=== PATIENT | female | born 1955 | race Caucasian/White ===

== ENCOUNTER 2022-02-25 16:33 | Emergency (ER) | payer MEDICARE, BC, MEDICAID ==
[~2022-02-25] VITALS: Ht 165.1 cm; Wt 45.5 kg
[2022-02-25] MEDS ORDERED: normal saline 1000ML IV soln IVB ONE (17:05)
[2022-02-25 17:13] LABS: BASOPHILS % (AUTO) 0.3 % (0-1); EOSINOPHILS # (AUTO) 0.1 X10'3 (0-0.9); HEMATOCRIT 33.7 % (35.0-45.0); HEMOGLOBIN 11.3 g/dl (12.0-16.0); LYMPHOCYTES # (AUTO) 2.2 X10'3 (1.1-4.8); MEAN CORPUSCULAR HEMOGLOBIN 31.6 PG (27.0-31.0); MEAN CORPUSCULAR HGB CONC 33.5 g/dL (33.0-36.5); MEAN CORPUSCULAR VOLUME 94.4 FL (78-98); MEAN PLATELET VOLUME 6.6 FL (7.4-10.4); MONOCYTES # (AUTO) 0.4 X10'3 (0-0.9); MONOCYTES % (AUTO) 7.2 % (2-12); NEUTROPHILS # (AUTO) 2.5 X10'3 (1.8-7.7); NEUTROPHILS % (AUTO) 49.5 % (42-75); PLATELET COUNT 284 X10'3 (140-440); RED BLOOD COUNT 3.56 X10'6 (4.20-5.60); RED CELL DISTRIBUTION WIDTH 13.1 % (11.5-14.5); WHITE BLOOD COUNT 5.1 X10'3 (4.5-11.0)
[2022-02-25 17:24] LABS: ALANINE AMINOTRANSFERASE 22 U/L (12-78); ALBUMIN 3.9 G/DL (3.4-5.0); ALBUMIN/GLOBULIN RATIO 1.3 (1.1-1.5); ALKALINE PHOSPHATASE 54 IU/L (46-116); ANION GAP 8 (8-16); ASPARTATE AMINO TRANSFERASE 21 U/L (10-37); BILIRUBIN,TOTAL 0.2 MG/DL (0.1-1.0); BLOOD UREA NITROGEN 16 MG/DL (7-18); BUN/CREATININE RATIO 24.2 (6.6-38.0); CALCIUM 8.5 MG/DL (8.5-10.1); CHLORIDE 103 MMOL/L (99-107); CREATININE 0.66 MG/DL (0.40-0.90); GLUCOSE 88 MG/DL (70-104); POTASSIUM 3.3 MMOL/L (3.5-5.1); SODIUM 141 MMOL/L (135-145); TOTAL CARBON DIOXIDE 30.3 MMOL/L (24-32); eGFR 90 ML/MIN
[2022-02-25] MEDS ORDERED: potassium Cl 20 mEq SR tablet PO STA (17:37)
[2022-02-25 18:51] VITALS: BP 174/97
[2022-02-25] MEDS ORDERED: acetaminophen 325mg tablet PO ONE (19:45)
== END 2022-02-25 19:58 | disposition home or self-care (01) ==
LOC: ER 16:34
DX: R00.2 Palpitations (principal); R07.89 Other chest pain; R06.02 Shortness of breath; R42 Dizziness and giddiness; F17.200 Nicotine dependence, unspecified, uncomplicated; F12.90 Cannabis use, unspecified, uncomplicated; Z98.890 Other specified postprocedural states; Z88.8 Allergy status to other drugs, medicaments and biological substances
CPT/HCPCS: 36415; 71045; 80053; 83880; 84484; 85025; 93005; 96360; 96361; 99285; J7030

== ENCOUNTER 2022-09-15 13:47 | Emergency (ER) | payer OTHER, MEDICAID ==
[~2022-09-15] VITALS: Ht 167.6 cm; Wt 42.8 kg
[2022-09-15 14:34] LABS: BASOPHILS % (AUTO) 0.6 % (0-1); EOSINOPHILS % (AUTO) 1.2 % (0-6); HEMATOCRIT 29.4 % (35.0-45.0); HEMOGLOBIN 9.6 g/dl (12.0-16.0); LYMPHOCYTES # (AUTO) 1.1 X10'3 (1.1-4.8); LYMPHOCYTES % (AUTO) 33.7 % (21-51); MEAN CORPUSCULAR HEMOGLOBIN 31.6 PG (27.0-31.0); MEAN CORPUSCULAR HGB CONC 32.7 g/dL (33.0-36.5); MEAN CORPUSCULAR VOLUME 96.6 FL (78-98); MEAN PLATELET VOLUME 6.7 FL (7.4-10.4); MONOCYTES # (AUTO) 0.2 X10'3 (0-0.9); MONOCYTES % (AUTO) 6.3 % (2-12); NEUTROPHILS # (AUTO) 1.9 X10'3 (1.8-7.7); NEUTROPHILS % (AUTO) 58.2 % (42-75); PLATELET COUNT 312 X10'3 (140-440); RED BLOOD COUNT 3.05 X10'6 (4.20-5.60); WHITE BLOOD COUNT 3.3 X10'3 (4.5-11.0)
[2022-09-15 14:43] LABS: APTT 28 SECONDS (22-32)
[2022-09-15 14:45] LABS: ALANINE AMINOTRANSFERASE 14 U/L (12-78); ALBUMIN/GLOBULIN RATIO 1.4 (1.1-1.5); ALKALINE PHOSPHATASE 53 IU/L (46-116); ANION GAP 8 (8-16); ASPARTATE AMINO TRANSFERASE 19 U/L (10-37); BILIRUBIN,TOTAL 0.3 MG/DL (0.1-1.0); BLOOD UREA NITROGEN 18 MG/DL (7-18); BUN/CREATININE RATIO 16.8 (10.0-20.0); CALCIUM 8.4 MG/DL (8.5-10.1); CHLORIDE 104 MMOL/L (99-107); CREATININE 1.07 MG/DL (0.40-0.90); GLUCOSE 102 MG/DL (70-104); POTASSIUM 4.4 MMOL/L (3.5-5.1); SODIUM 142 MMOL/L (135-145); TOTAL CARBON DIOXIDE 30.2 MMOL/L (24-32); TOTAL PROTEIN 6.8 G/DL (6.4-8.2); eGFR 51 ML/MIN
--- NOTE | 2022-09-15 16:25 | NUR ---
SPOKE WITH MD REGARDING PT'S ASSESSMENT. MD STAED TO D/C NEURO CHECKS GIVEN PATIENT'S S/S INCLUDE MILD HEADACHE AND OCCASIONAL BLURRY VISION TO RIGHT EYE. PRODUCT MARKETING COORDINATOR 5/5 UE AND LE BILAT, A&OX4, SMILE EQUAL, NO FACIAL DROOP, PERRLA (NYSTAGMUS TO RIGHT EYE). CT NEGATIVE. PT STATING SHE HAS HAD THIS HEADACHE FOR 2 DAYS NOW, BUT WAS TOLD IN CLINIC TO BE SEEN AT ER. WILL CONTINUE TO MONITOR.
[2022-09-15 17:41] LABS: CLARITY,URINE CLEAR (Clear); COLOR,URINE YELLOW (Yellow); GLUCOSE, URINE NEGATIVE (Neg); KETONES,URINE NEGATIVE (Neg); LEUKOCYTE ESTERASE ,URINE SMALL (Neg); NITRITES, URINE POSITIVE (Neg); OCCULT BLOOD,URINE NEGATIVE (Neg); PH,URINE 5.5 (4.8-8.0); PROTEIN,URINE NEGATIVE (Neg); UROBILINOGEN,URINE 0.2 E.U/dL (0.2-1.0)
[2022-09-15 17:50] LABS: BACTERIA,URINE 4+ /HPF (Neg); MUCUS STRANDS FEW /LPF (Neg); RBC,URINE NONE SEEN /HPF (0-2); SQUAMOUS EPITHELIAL CELL,UR NONE SEEN /LPF (FEW); UA COLLECTION TYPE NON-SPECIFIED; WBC,URINE 20-30 /HPF (0-4)
[2022-09-15] MEDS ORDERED: cephalexin 250mg capsule PO ONE (17:55)
[2022-09-15] MEDS ORDERED: CEPH500C2 PO (17:57)
[2022-09-15 18:52] VITALS: BP 135/81
== END 2022-09-15 18:54 | disposition home or self-care (01) ==
LOC: ER 13:48
DX: N39.0 Urinary tract infection, site not specified (principal); Z88.8 Allergy status to other drugs, medicaments and biological substances; F12.10 Cannabis abuse, uncomplicated; Z79.899 Other long term (current) drug therapy
CPT/HCPCS: 36415; 70450; 71045; 80053; 81001; 82948; 85025; 85610; 85730; 87077; 87088; 87186; 93005; 99285

== ENCOUNTER 2022-11-25 14:12 | Emergency (ER) | payer OTHER, MEDICAID ==
[~2022-11-25] VITALS: Ht 165.1 cm; Wt 46.2 kg
[2022-11-25 14:42] VITALS: BP 133/77
== END 2022-11-25 16:39 | disposition left against medical advice (07) ==
LOC: ER 14:12
DX: M79.645 Pain in left finger(s) (principal); Z53.21 Procedure and treatment not carried out due to patient leaving prior to being seen by health care provider
CPT/HCPCS: 99281

== ENCOUNTER 2023-11-28 11:49 | Emergency (ER) | payer MEDICAID, OTHER ==
[~2023-11-28] VITALS: Ht 165.1 cm; Wt 51.0 kg
[2023-11-28] MEDS ORDERED: GUAI600T45 PO (12:47)
[2023-11-28] MEDS ORDERED: AMOX-117 PO (12:47)
[2023-11-28] MEDS ORDERED: ALBU18HF2 INH (12:47)
[2023-11-28 13:01] VITALS: BP 128/84; PULSE 68; RESP 16; TEMP 97.8; O2SAT 98
== END 2023-11-28 13:04 | disposition home or self-care (01) ==
LOC: ER 11:50
DX: J22 Unspecified acute lower respiratory infection (principal); F12.90 Cannabis use, unspecified, uncomplicated; Z88.8 Allergy status to other drugs, medicaments and biological substances; Z79.2 Long term (current) use of antibiotics
CPT/HCPCS: 71046; 99283

== ENCOUNTER 2023-11-30 15:33 | Emergency (ER) | payer OTHER ==
[~2023-11-30] VITALS: Ht 165.1 cm; Wt 49.6 kg
[~2023-11-30 15:33] MED LIST: ALBU18HF2 INH; AMOX-117 PO; GUAI600T45 PO
[2023-11-30 16:19] LABS: BASOPHILS % (AUTO) 0.2 % (0-1); EOSINOPHILS # (AUTO) 0.1 X10'3 (0-0.9); EOSINOPHILS % (AUTO) 0.9 % (0-6); HEMATOCRIT 41.4 % (35.0-45.0); HEMOGLOBIN 13.7 g/dl (12.0-16.0); LYMPHOCYTES # (AUTO) 1.3 X10'3 (1.1-4.8); LYMPHOCYTES % (AUTO) 20.2 % (21-51); MEAN CORPUSCULAR HEMOGLOBIN 30.9 PG (27.0-31.0); MEAN CORPUSCULAR VOLUME 93.6 FL (78-98); MEAN PLATELET VOLUME 6.9 FL (7.4-10.4); MONOCYTES # (AUTO) 0.3 X10'3 (0-0.9); MONOCYTES % (AUTO) 5.2 % (2-12); NEUTROPHILS # (AUTO) 4.8 X10'3 (1.8-7.7); NEUTROPHILS % (AUTO) 73.5 % (42-75); PLATELET COUNT 384 X10'3 (140-440); RED BLOOD COUNT 4.43 X10'6 (4.20-5.60); RED CELL DISTRIBUTION WIDTH 13.6 % (11.5-14.5); WHITE BLOOD COUNT 6.5 X10'3 (4.5-11.0)
[2023-11-30 16:39] LABS: ALBUMIN 4.4 G/DL (3.4-5.0); ANION GAP 8 (8-16); BLOOD UREA NITROGEN 9 MG/DL (7-18); CALCIUM 9.5 MG/DL (8.5-10.1); CHLORIDE 101 MMOL/L (99-107); CREATININE 0.75 MG/DL (0.40-0.90); GLUCOSE 86 MG/DL (70-104); PRO BRAIN NATRIURETIC PEPTIDE 129 PG/ML (0-125); SODIUM 139 MMOL/L (135-145); TOTAL CARBON DIOXIDE 30.5 MMOL/L (24-32); eCRCL 57 ML/MIN; eGFR 77 ML/MIN
[2023-11-30] MEDS ORDERED: AMLO10TA5 PO (16:56)
[2023-11-30 16:57] VITALS: BP 156/84; PULSE 98; RESP 16; TEMP 98.8; O2SAT 98
== END 2023-11-30 16:58 | disposition home or self-care (01) ==
LOC: ER 15:34
DX: J32.8 Other chronic sinusitis (principal); F12.90 Cannabis use, unspecified, uncomplicated; Z79.2 Long term (current) use of antibiotics; Z79.899 Other long term (current) drug therapy; Z98.890 Other specified postprocedural states
CPT/HCPCS: 36415; 71046; 80048; 83605; 83880; 85025; 87040; 99284

== ENCOUNTER 2024-03-26 15:19 | Emergency (ER) | payer OTHER ==
[~2024-03-26] VITALS: Ht 160 cm; Wt 68.0 kg
[~2024-03-26 15:19] MED LIST changes: +AMLO10TA5 PO; -AMOX-117 PO
[2024-03-26 15:22] VITALS: TEMP 97.4
[2024-03-26] MEDS ORDERED: ONDA-243 PO (17:25)
[2024-03-26] MEDS: ondansetron 4mg rapidly disintigrating tab PO STA (17:35)
[2024-03-26 17:39] VITALS: BP 136/89; PULSE 78; RESP 16; O2SAT 98
== END 2024-03-26 17:42 | disposition home or self-care (01) ==
LOC: ER 15:19
DX: A08.4 Viral intestinal infection, unspecified (principal); F12.90 Cannabis use, unspecified, uncomplicated; Z88.5 Allergy status to narcotic agent; Z79.899 Other long term (current) drug therapy; Z98.84 Bariatric surgery status
CPT/HCPCS: 99283

== ENCOUNTER 2024-10-29 13:31 | Emergency (ER) | payer OTHER ==
[~2024-10-29] VITALS: Ht 165.1 cm; Wt 45.0 kg
[~2024-10-29 13:31] MED LIST changes: +ONDA-243 PO
[2024-10-29 13:36] VITALS: BP 115/76; PULSE 78; RESP 16; TEMP 98; O2SAT 94
[2024-10-29] MEDS ORDERED: AMOX500C2 PO (15:20)
[2024-10-29] MEDS ORDERED: CARB15DR91 RIGHT EAR (15:20)
--- NOTE | 2024-10-29 15:20 | Physician Documentation ---
History of Present Illness ~ Chief Complaint: Ear Pain Stated Complaint: L EAR PAIN Time Seen by MD: 13:49 Primary Medical Doctor: None HPI 69-year-old female reports a chief complaint of bilateral ear pain. Patient states that she has been experiencing pain for proximally one week and states that she has to probe with a camera on its look in her ear and states that I have black stuff in my ear. Endorses pain to the ear. Currently denies fevers or chills. Denies active drainage or discharge. No other complaints at this time Medication Reconciliation Allergies: Coded Allergies: fentanyl (Unverified Allergy, Mild, HIVES, 03/26/24) Scheduled Amlodipine Besylate (Norvasc), 1 TAB PO DAILY Guaifenesin (Mucinex), 1 TAB PO Q12H ONDANSETRON ODT 4mg tablet (Ondansetron Odt), 4 MG PO BID ONDANSETRON ODT 4mg tablet (Ondansetron Odt), 4 MG PO BID Scheduled PRN Albuterol Sulfate (Ventolin Hfa), 2 PUFFS INH Q4HPRN PRN for wheezing Past Medical History Past Medical History: *CARDIOVASCULAR*, *GI/HEPATOBILIARY* Past Surgical History: gastric bypass Smoking Status: Former smoker Alcohol Use: None Drug Use: marijuana Lives with: Family Lives In: Home Physical Exam Vital Signs: Temperature: 98.0, Source: Oral, Heart Rate: 78, Respiratory Rate: 16, BP: 115/76, Pulse Oximetry: 94, Weight: 45.000 Oxygen Flow Rate: 0 Physical Exam General: Well developed, well nourished, no distress. HEENT: Right ear exam: Negative for erythema, swelling or tenderness to the mastoid. External auditory meatus is positive for cerumen impaction. Unable to visualize TM. Left ear exam: Negative for erythema, swelling or tenderness to the mastoid. External auditory meatus is positive for cerumen impaction. Unable to visualize TM Neck: Full range of motion, supple. Respiratory: Lungs clear, no respiratory distress. Chest: No accessory muscle use, nontender. Cardiovascular: Regular rate and rhythm. Gastrointestinal: Soft, nontender, nondistended. Bowel sounds present. Extremities: Normal range of motion, nontender, normal capillary refill, no deformity. Back: No midline tenderness, no CVA tenderness. Neurologic: Oriented x4. Distal gross motor and sensory intact all four extremities. Moves all 4 extremities spontaneously. Psychiatric: Normal mood and affect. Skin: Normal color, warm and dry. No edema, no ecchymosis Progress Results/Orders Results/Orders Vital Signs 10/29/24 13:36 Temp 98.0 Pulse 78 Resp 16 B/P (MAP) 115/76 Pulse Ox 94 O2 Flow Rate 0 Medical Decision Making Additional info obtained from: old records Findings After detailed discussion jet medical decision-making, diagnostic imaging results were discussed with patient. At this time patient has a cerumen impaction patient will be given Debrox to use for a week and if patient does not have relief she will be advised to report back for ear lavage. Patient is given antibiotics to due to the pain GI precautions given patient will have an ear infection. Patient will be advised to follow up with primary care. ER precautions given. Patient is stable upon discharge. All patient questions answered satisfaction Ear Diff. Dx: Considerations: Include: Cerumen impaction, Foreign body, Otitis externa, Otitis media, Perforation Departure Disposition: HOME / SELF CARE / HOMELESS Impression: Primary Impression: Cerumen impaction Additional Impression: Ear pain Condition: Stable Discharge Instructions: Earache, Adult Referrals: NO PRIMARY CARE PROVIDER (PCP) Prescriptions Amoxicillin Trihydrate* (Amoxicillin*) 500 Mg Capsule 1 CAP PO Q12H for 10 Days, #20 CAP Prov: SANDRA REY 10/29/24 Carbamide Peroxide (Debrox) 6.5 % Drops 5 DROP RIGHT EAR Q12H, #15 ML 0 Refills Prov: SANDRA REY 10/29/24 Education Educated: Patient Educated regarding: diagnosis, treatment Signature Scribe Signature: none used Attestation: Scribed for Sandra Rey by Sandra FERNANDEZ . 10/29/24 15:20 SANDRA REY October 29, 2024 15:20
[2024-10-30] MEDS ORDERED: AMOX500C2 PO (13:12)
[2024-10-30] MEDS ORDERED: CARB15DR91 RIGHT EAR (13:14)
== END 2024-10-29 15:22 | disposition home or self-care (01) ==
LOC: ER 13:32
DX: H61.23 Impacted cerumen, bilateral (principal); Z87.891 Personal history of nicotine dependence; F12.90 Cannabis use, unspecified, uncomplicated; Z98.84 Bariatric surgery status; Z88.5 Allergy status to narcotic agent
CPT/HCPCS: 99283

== ENCOUNTER 2024-12-09 13:15 | Observation (INO) | payer OTHER ==
[~2024-12-09] VITALS: Ht 165.1 cm; Wt 47.5 kg
[~2024-12-09 13:15] MED LIST changes: +CARB15DR91 RIGHT EAR
[2024-12-09 14:08] LABS: MEAN PLATELET VOLUME 7.1 FL (7.4-10.4); RED CELL DISTRIBUTION WIDTH 14.2 % (11.5-14.5)
--- NOTE | 2024-12-09 15:05 | Physician Documentation ---
History of Present Illness ~ Chief Complaint: Headache Stated Complaint: HEADACHE Time Seen by MD: 14:56 Primary Medical Doctor: None HPI Patient reports headache since 1900 yesterday but has been intermittent for the last month and a half. Patient reports blurred vision to both eyes with right worse than the left. Nausea and photophobia. Patient reports her of skin in the right side of her face is tender to touch. Denies any burning sensation For primary care center here of concern for temporal arteritis Day of Onset: Dec 09, 2024 Medication Reconciliation Allergies: Coded Allergies: fentanyl (Unverified Allergy, Mild, HIVES, 12/09/24) Scheduled Amlodipine Besylate (Norvasc), 1 TAB PO DAILY Amlodipine Besylate (Amlodipine Besylate), 1 TAB PO DAILY, (Reported) Buprenorphine HCl/Naloxone HCl (Zubsolv 8.6-2.1 mg Tablet Sl), 2 TAB SL DAILY, (Reported) Carbamide Peroxide (Debrox), 5 DROP RIGHT EAR Q12H Fluoxetine HCl (Fluoxetine HCl), 1 CAP PO DAILY, (Reported) Gabapentin (Gabapentin), 1 TAB PO TID, (Reported) Guaifenesin (Mucinex), 1 TAB PO Q12H ONDANSETRON ODT 4mg tablet (Ondansetron Odt), 4 MG PO BID ONDANSETRON ODT 4mg tablet (Ondansetron Odt), 4 MG PO BID Tizanidine Hcl (Zanaflex), 1 TAB PO TID, (Reported) Scheduled PRN Albuterol Sulfate (Ventolin Hfa), 2 PUFFS INH Q4HPRN PRN for wheezing Past Medical History Past Medical History: *CARDIOVASCULAR*, *GI/HEPATOBILIARY* Past Surgical History: gastric bypass Alcohol Use: None Drug Use: marijuana Lives with: Family Lives In: Home Review of Systems All Other Systems at this time: Reviewed and Negative ROS As stated above in the HPI, otherwise all systems are reviewed and negative. Physical Exam Vital Signs: Temperature: 97.9, Source: Temporal, Heart Rate: 95, Respiratory Rate: 18, BP: 126/79, Pulse Oximetry: 96, Weight: 47.550 Physical Exam General: Alert, no apparent distress. HEENT: PERRL, EOMI, no injection, moist mucous membranes. Neck: Full range of motion. Respiratory: Lungs clear, no respiratory distress. Chest: No accessory muscle use. Cardiovascular: Regular rate and rhythm, no murmurs. Gastrointestinal: Soft, nontender, nondistended. Bowels sounds present. Extremities: Normal range of motion, no deformity. Neurologic: Oriented x4. Psychiatric: Normal mood and affect. Skin: Normal color, warm and dry. No edema, no ecchymosis. Progress Results/Orders Results/Orders Orders - MISAEL MORALES PSYCHOLOGICAL OPERATIONS OFFICER Mri Head (12/09/24 15:11) [place] Prov.Neuro Consult (12/09/24 16:41) Page Hospitalist (12/09/24 ) Completed Orders - MISAEL MORALES PSYCHOLOGICAL OPERATIONS OFFICER Methylprednisolone Sod Succ (Solumedrol (12/09/24 15:10) Ketorolac Trometh 15mg/Ml Vial (Toradol (12/09/24 15:10) Mri Head (12/09/24 15:11) Medications Received in ER Medications (Trade) Dose Ordered Sig/Rosendo Route PRN Reason Start Time Stop Time Status Last Admin Dose Admin (SoluMEDROL 125mg inj) 125 mg ONCE ONCE IV 12/09/24 15:10 12/09/24 15:12 DC 12/09/24 15:39 125 MG (Toradol injection) 15 mg ONCE ONCE IV 12/09/24 15:10 12/09/24 15:12 DC 12/09/24 15:39 15 MG (Tylenol tablet) 650 mg Q6H PRN PO MILD PAIN (1-3 ON 0-10 SCALE) 12/09/24 19:20 12/09/24 21:25 650 MG Sodium Chloride 1,000 ml @ 100 mls/hr Q10H IV 12/09/24 19:20 12/09/24 21:26 100 MLS/HR Vital Signs 12/09/24 12/09/24 12/09/24 12/09/24 13:17 14:38 15:39 15:48 Temp 97.9 97.9 Pulse 95 76 Resp 18 14 15 B/P (MAP) 126/79 145/84 (104) Pulse Ox 96 98 O2 Flow Rate 0 12/09/24 12/09/24 12/09/24 17:55 18:30 19:00 Temp 97.9 Pulse 76 80 Resp 14 16 16 B/P (MAP) 147/82 (103) 138/80 (99) Pulse Ox 94 98 O2 Flow Rate 0 Laboratory Tests Test 12/09/24 13:40 White Blood Count 3.5 L Red Blood Count 4.30 Hemoglobin 13.3 Hematocrit 39.9 Mean Corpuscular Volume 92.9 Mean Corpuscular Hemoglobin 31.0 Mean Corpuscular Hemoglobin Concent 33.4 Red Cell Distribution Width 14.2 Platelet Count 308 Mean Platelet Volume 7.1 L Neutrophils (%) (Auto) 54.9 Lymphocytes (%) (Auto) 35.6 Monocytes (%) (Auto) 7.3 Eosinophils (%) (Auto) 1.3 Basophils (%) (Auto) 0.9 Neutrophils # (Auto) 1.9 Lymphocytes # (Auto) 1.2 Monocytes # (Auto) 0.3 Eosinophils # (Auto) 0.0 Basophils # (Auto) 0.0 CBC Comment Erythrocyte Sedimentation Rate 9 Sodium Level 137 Potassium Level 4.2 Chloride Level 100 Carbon Dioxide Level 28.9 Anion Gap 8 Blood Urea Nitrogen 14 Creatinine 0.74 Estimated GFR/1.73 m2 78 BUN/Creatinine Ratio 18.9 Glucose Level 146 H Hemoglobin A1c 5.6 Calcium Level 8.9 Magnesium Level 2.0 C-Reactive Protein 0.05 Pro-B-Type Natriuretic Peptide 104 Albumin 4.1 Chemistry Comments Medical Decision Making Findings This 69-year-old female although she has a normal ESR my have ongoing concerns about temporal arteritis. I spoke to the neurologist through [facility] and she indicated that the patient needs to have an MRI done with and without contrast and to be admitted to the hospital for further evaluation. Patient will likely require ongoing corticosteroids and potentially evaluation by vascular surgeon if her MRI comes back positive Differential Dx:Considerations: Include: MOREIRA-Cluster, MOREIRA-Migraine, MOREIRA-Hypertensive, MOREIRA-Muscular contraction, MOREIRA-Post lumbar puncture, Carbon monoxide toxicity, Close head injuyr, CVA, Fever induced, Hemorrhage-Epidural, Hemorrhage-Intracerebral, Hemorrhage-Subarachnoid, Hemorrhage-Subdural, Mass lesion, Meningitis, Post-traumtic, Pseudotumor cerebri, Sinusitis, Temporal arteritis, Trigeminal neuralgia, Other Departure Disposition: ADMITTED INPATIENT Impression: Primary Impression: Headache Additional Impression: Brain concussion Condition: Stable Referrals: NO PRIMARY CARE PROVIDER (PCP) Signature Scribe Signature: rf Attestation: Scribed for Misael Morales Np by Misael English NP . 12/09/24 19:25 MISAEL MORALES NP Dec 09, 2024 15:05
[2024-12-09 15:17] LABS: CREATININE 0.74 MG/DL (0.40-0.90); TOTAL CARBON DIOXIDE 28.9 MMOL/L (24-32); eCRCL 55 ML/MIN; eGFR 78 ML/MIN
[2024-12-09] MEDS: ketorolac trometh 15mg/ml vial 15 MG/ML ML IV ONE (15:39)
--- NOTE | 2024-12-09 17:57 | [facility]SULT REPORT ---
[facility] Procedure Note [facility] Procedure Note Consult [facility] Note # Demographics Consult Type: General Neurology Patient Location: Emergency Room First Name: IZABELLA Last Name: Abigail Date of : 1955 Age: 69 Gender: Female Facility: [facility] Time of Initial Page (Carter Time): 12/09/2024 17:28 Time of Return Call (Carter Time): 12/09/2024 17:29 # HPI History: 69yof who p/w tenderness in her R head for the past 2 weeks, then this afternoon her eye has been hurting. She noticed her R vein in her face was popping was 2 weeks ago. Was sent to the ER by her PCP due to concern for temporal arteritis. # Exam Vitals: vital signs reviewed Mental Status: - awake - alert and oriented x 3 Language: - normal speech - no aphasia - no dysarthria Cranial Nerves: - normal - extra ocular movements intact Motor: - normal strength # Plan Labs: ESR/CRP Imaging: (urgency: routine): - MRI Brain with AND without contrast Medication: Depending on above workup, start prednisone 40mg for suspected temporal arteritis Other: - If patient has any neurological deterioration please call me back immediately Additional Recommendations: Referral for temporal artery biopsy Rheum referral # Logistics Attestation of consult completion: The patient is located at: [facility]. Facility staff participated in the visit. I performed this telemedicine visit from my offsite office utilizing interactive 2 way audio and visual telecommunication technology. Total time spent in telemedicine encounter: I spent 23 minutes reviewing clinical data and/or imaging, obtaining history, examining the patient, communicating with the onsite care team, and in preparation of this report. # Demographics First Name: IZABELLA Last Name: Abigail Facility: [facility] Neuro Consult Order placed for: Yes FESTUS RUSSELL MD Dec 09, 2024 17:57
[2024-12-09] MEDS ORDERED: HYDROcodone/acetaminophen 10/325mg tab PO PRN (19:20)
[2024-12-09] MEDS ORDERED: mag hydrox/Alum hydrox/simeth 30ml oral suspension PO PRN (19:20)
[2024-12-09] MEDS ORDERED: magnesium sulf-water 4G/100mL 100 ML IV PRN (19:20)
[2024-12-09] MEDS ORDERED: bisacodyl 10mg suppository rectal RC PRN (19:20)
[2024-12-09] MEDS ORDERED: magnesium Cl slow-release 64mg tablet PO PRN (19:20)
[2024-12-09] MEDS ORDERED: HYDROmorphone inj. 0.5 MG/0.5 ML DISP.SYRIN IV PRN (19:20)
[2024-12-09] MEDS ORDERED: ondansetron/PF 4mg/2ml inj IV PRN (19:20)
[2024-12-09] MEDS ORDERED: HYDROcodone/acetaminophen 5mg/325mg tablet PO PRN (19:20)
[2024-12-09] MEDS ORDERED: potassium Cl 40MEQ/1/2NS 520ml 520 ML IV PRN (19:20)
[2024-12-09] MEDS ORDERED: magnesium hydroxide 30ml (MOM) UD suspension PO PRN (19:20)
[2024-12-09] MEDS ORDERED: magnesium sulf-water 2g/50mL 50 ML IV PRN (19:20)
[2024-12-09] MEDS ORDERED: potassium Cl 20 mEq SR tablet PO PRN ×2 (19:20)
--- NOTE | 2024-12-09 19:50 | RADIOLOGY REPORT ---
EXAM: MR MRI HEAD INDICATION: GCA rule out TECHNIQUE: Multiplanar, multisequence imaging of the brain without contrast. COMPARISON: None FINDINGS: [PARENCHYMA]: No acute infarct or hemorrhage. No mass effect or herniation. No abnormal susceptibilit y weighted artifact. There are at least moderate scattered periventricular and centrum semiovale T2/F LAIR hyperintensities, which are nonspecific but most likely represent chronic microvascular ischemic change. [VENTRICLES]: No hydrocephalus. [EXTRA-AXIAL SPACES]: No extra-axial fluid collections. [FLOW VOIDS]: The flow voids are intact. [EXTRA-CRANIAL STRUCTURES]: The bony structures are intact. Visualized portions of the paranasal sinu ses and mastoid air cells are essentially clear. IMPRESSION: 1. No MR evidence of an acute infarction. Favor chronic microangiopathic change
[2024-12-09 19:54] LABS: PRO BRAIN NATRIURETIC PEPTIDE 104 PG/ML (0-125)
[2024-12-09] MEDS: heparin, porcine 5000 units/ml vial SQ SCH (20:00)
[2024-12-09] MEDS: docusate sod 100mg capsule PO SCH (20:00)
[2024-12-09] MEDS: K and/or MAG REPLACEMENT MC SCH (20:00)
[2024-12-09] MEDS: GADOTERATE MEGLUMINE 7.5 MMOL/15 ML VIAL IV ONE (20:07)
[2024-12-09 20:21] LABS: APTT 27 SECONDS (22-32); INR 1.0 INR
--- NOTE | 2024-12-09 21:15 | RADIOLOGY REPORT ---
EXAM: CT CT HEAD INDICATION: severe headache TECHNIQUE: CT of the head without intravenous contrast. Radiation Dose : 1. Head: CT Dose: CTDI volume is 47 mGy. Dose-length product is 915 mGy*cm The dose indicators for CT are the volume Computed Tomography (CT) Dose Index (CTDIvol) and the Dose Length Product (DLP), and are measured in units of mGy and mGy-cm, respectively. These indicators are not patient dose, but values generated from the CT scanner acquisition factors. The report includes radiation exposure data for exposures received during this examination. COMPARISON: MR MRI HEAD on DOS: 12/09/24, CT STROKE ALERT on DOS: 09/15/22 FINDINGS: There is no evidence of acute intracranial hemorrhage, extra-axial collection, mass effect, midline s hift, herniation or hydrocephalus. The ventricles, sulci and cisterns are age appropriate. The waggoner-white differentiation is intact. Patchy periventricular and subcortical white matter hypoattenuation is nonspecific but may be related to small vessel ischemic disease. The visualized paranasal sinuses and mastoid air cells are clear. The surrounding soft tissues and osseous structures are unremarkable. IMPRESSION: 1. No acute intracranial abnormality. Radiation optimization: All CT scans at this facility use at least one of these dose optimization miguel hniques: automated exposure control mA and/or kV adjustment per patient size (includes targeted exam s where dose is matched to clinical indication) or iterative reconstruction.
[2024-12-09] MEDS: normal saline 1000ml 1,000 ML IV SCH (21:26)
[2024-12-09] MEDS ORDERED: FLUO-331 PO (21:29)
[2024-12-09] MEDS ORDERED: GABA-1555 PO (21:29)
[2024-12-09] MEDS ORDERED: BUPR1TAB48 SL (21:29)
[2024-12-09] MEDS ORDERED: AMLO10TA13 PO (21:29)
[2024-12-09] MEDS ORDERED: TIZA-205 PO (21:29)
[2024-12-09 21:50] LABS: LEUKOCYTE ESTERASE ,URINE NEGATIVE (Neg); NITRITES, URINE NEGATIVE (Neg); OCCULT BLOOD,URINE NEGATIVE (Neg)
[2024-12-09 21:51] LABS: UA COLLECTION TYPE CLN CATCH MIDSTREAM
--- NOTE | 2024-12-10 01:44 | HISTORY AND PHYSICAL-Residence ---
History & Physical Providers to CC Resident Creating Document: ZENY MOREI, RES ~ History of Present Illness Primary Medical Doctor: None Reason for Admit\Complaint: Headache History of Present Illness This is a 69-year-old female with a history of opioid use disorder, peripheral neuropathy, musculoskeletal disorders, hypertension cataracts presents today complaint of severe headache. Patient states that her headache was 8/10 in severity in the right parietal and frontal regions, nonradiating, associated with blurring of vision and right eye pain that started yesterday night. She also noticed some pulsating sensation in the right frontal area and thinks her vein was pulsating. She denies any nausea, vomiting, fever. She called her PCP who was concerned about the possibility of temporal arteritis and redirected her to go to the ED. she also saw commercial credit head few months ago for blurring of vision, who asked her to change her glasses but she has not made the change yet. She had OxyContin and oxycodone opioid use disorder and was currently on treatment for that. She smoked about three packs a day for five years and 1-2 packs a day for 20 years. Denies any alcohol or other recreational drug use Allergies: Coded Allergies: fentanyl (Unverified Allergy, Mild, HIVES, 12/09/24) Home Medications Home Medications Active Debrox (Carbamide Peroxide) 6.5 % Drops 5 Drop RIGHT EAR Q12H Ondansetron Odt (Ondansetron HCl) 4 Mg Tab.rapdis 4 Mg PO BID 7 Days Ondansetron Odt (Ondansetron HCl) 4 Mg Tab.rapdis 4 Mg PO BID 7 Days Norvasc (Amlodipine Besylate) 10 Mg Tablet 1 Tab PO DAILY 30 Days Mucinex (Guaifenesin) 600 Mg Tablet.sa 1 Tab PO Q12H 10 Days Ventolin Hfa (Albuterol Sulfate) 90 Mcg Hfa.aer.ad 2 Puffs INH Q4HPRN PRN 30 Days Reported Gabapentin 800 Mg Tablet 1 Tab PO TID Fluoxetine HCl 10 Mg Capsule 1 Cap PO DAILY Zanaflex (Tizanidine Hcl) 4 Mg Tablet 1 Tab PO TID Amlodipine Besylate 10 Mg Tablet 1 Tab PO DAILY Zubsolv 8.6-2.1 mg Tablet Sl (Buprenorphine HCl/Naloxone HCl) 8.6 Mg-2.1 Mg Tab.subl 2 Tab SL DAILY Past Medical History Past Medical History Peripheral neuropathy, opioid use disorder, musculoskeletal disorder, hypertension Past Surgical History Surgical History Comment delivery, tonsillectomy, cholecystectomy, appendicectomy, gastric bypass Family History Family History: FH: stroke FATHER MOTHER Past Social History Social History Comment Heavy smoker in the past, quit now. Denies alcohol. Used OxyContin and oxycodone in the past Alcohol Use: None Drug Use: Marijuana Lives with: Family Lives In: Home ROS All Other Systems: Reviewed and Negative ROS Reviewed in full and negative except for the pertinent positives in HPI Exam Vitals: Vital Signs Date Time Temp Pulse Resp B/P (MAP) Pulse Ox O2 Delivery O2 Flow Rate FiO2 12/09/24 23:34 82 12/09/24 23:00 98.1 16 146/88 (107) 97 0 General: General: Thin built. Awake , alert, and oriented x4, resting comfortably in the bed, in no acute distress . HEENT: Atraumatic, normocephalic, EOMI, anicteric sclera B; pink conjunctiva; PERRLA, normal oropharynx, moist oral and nasal mucosa. Tympanic membrane , nose , throat clear. Neck: Trachea midline. Supple, full range of motion, no JVD, bruit , hepatojugular reflex , lymphadenopathy or masses, or other lesions Cardiac: Regular rhythm, regular rate no murmurs, rubs, or gallops. Normal S1 and S2, no S3 noticed. PMI is normal. Respiratory: Equal breath sounds bilaterally, no tachypnea; lungs clear to auscultation bilaterally, no wheezing ,rub or rales, or crackles. Chest wall is symmetric and without deformity. No signs of trauma. Chest wall is nontender. No signs of respiratory distress. Resonance is normal upon percussion bilaterally. Gastrointestinal: Abdomen symmetric, non-distended, soft, non-tender, normal bowel sounds x4 quadrant, normoactive, no hepatosplenomegaly , no masses , no bruit, no flank pain bilaterally. No voluntary guarding, rebound, or rigidity. No tenderness to percussion. No pulsatile masses. Equal femoral pulses. No Valiente's sign or McBurney point tenderness. Back; no CVA tenderness bilaterally, no deformities. Neck and back are without deformity as well. No tenderness noted on palpation of the spinous processes. Spinous processes are midline. Cervical, thoracic, and lumbar paraspinal muscles are not tender and are without spasm. : normal external genitalia, without lesions, swelling, masses or tenderness. Musculoskeletal: Extremities, normal range of motion, non-tender, muscle strength 5/5 x 4. Negative Homans signs bilaterally on lower extremity. Distal pulses full symmetrical, no clubbing, cyanosis , edema. Neurological: Speech is clear, alert, and oriented x 4. No motor or sensory deficit, deep tendon reflexes normal, cerebellar intact. Cranial nerves II-XII intact. Psych: Alert and or appropriate, normal affect. Vascular: Good distal pulses, which are equal x4; capillary refill less than 2 seconds. Skin: Warm, dry, no pallor, no rash or petechiae. Diagnostic Data Last Recorded Lab Results: 12/09/24 1340 12/09/24 1340 Diagnostic Data: Laboratory Tests Test 12/09/24 20:02 Prothrombin Time 10.0 SECONDS (9.0-12.0) INR International Normalized Ratio 1.0 INR Activated Partial Thromboplast Time 27 SECONDS (22-32) Coagulation Comments Advance Care Planning Advanced Care plannin - 30 Minutes (I spent a total of 17 minutes on reviewing various resuscitative measures/ ACP with the patient at the time of admission. The patient has decided on a full code status) Additional Plan Severe headache Differentials include temporal arteritis, cluster, migraine with aura CT head is negative for intracranial abnormalities but shows small micro vascular ischemic changes MRI head is negative for acute intracranial abnormalities. Patient has a history of musculoskeletal disease in the past [facility] neurology consulted who recommend prednisone 40 mg for suspected temporal arteritis. Patient also received one IV dose of 125 mg Solu-Medrol in the ED. patient also received a Toradol shot in the ED They also recommend outpatient Rheumatology follow up and outpatient temporal artery biopsy. However ESR is 9. CRP is 0.05. CMP, CBC, UA unremarkable. Hypertension Restarted home medication amlodipine 10 mg p.o. daily Peripheral neuropathy Continued home medication gabapentin 800 mg PO TID and tizanidine 4 mg p.o. t.i.d. daily Depression Continue fluoxetine 10 mg p.o. daily History of opioid use disorder History of gastric bypass surgery Patient has refused narcotics due to history of opioid use disorder. Patient also does not want to take oral NSAIDs due to history of gastric bypass surgery. Patient had good pain relief with Toradol. Tylenol p.r.n. for mild headache. Toradol p.r.n. as needed for severe headache. Code Status: Full code DVT Prophylaxis: Heparin Analgesia/Sedation: Toradol Lines/Tubes: PIV Gi Prophylaxis: Protonix Nutrition: Regular diet PT: Yes Prognosis: Guarded Disposition: Admit to neuro floor Zeny Pulido MD Internal Medicine Resident PGY-1 Date of Service: Dec 10, 2024 Billing Provider: TYREE LAU MD,ZENY PULIDO, RES Dec 10, 2024 01:44
[2024-12-10 02:00] VITALS: BP 130/77; PULSE 76; RESP 17; TEMP 97.5; O2SAT 95
[2024-12-10] MEDS: ketorolac trometh 15mg/ml vial 15 MG/ML ML IV ONE (02:00)
[2024-12-10] MEDS ORDERED: ketorolac trometh 15mg/ml vial 15 MG/ML ML IV PRN (02:00)
[2024-12-10 02:37] VITALS: RESP 17; O2SAT 95
[2024-12-10 05:04] LABS: MEAN PLATELET VOLUME 6.8 FL (7.4-10.4); RED CELL DISTRIBUTION WIDTH 14.3 % (11.5-14.5)
[2024-12-10 05:15] LABS: CHOL/HDL RATIO 2.0 (0.00-4.99); CREATININE 0.67 MG/DL (0.40-0.90); LDL CHOLESTEROL 83 MG/DL (50-100); TOTAL CARBON DIOXIDE 29.0 MMOL/L (24-32); eCRCL 60 ML/MIN; eGFR 88 ML/MIN
[2024-12-10 06:51] VITALS: BP_SYST 125; PULSE 66
[2024-12-10] MEDS: pantoprazole 40mg Tablet.DR PO SCH (07:14)
[2024-12-10 08:00] VITALS: RESP 16; O2SAT 97
[2024-12-10] MEDS ORDERED: buprenorphine/naloxone 8MG-2MG SUBlingual film SL SCH (08:00)
[2024-12-10] MEDS ORDERED: PRED10TA23 PO (10:36)
--- NOTE | 2024-12-10 17:10 | DISCHARGE SUMMARY ---
Discharge Summary Providers to No new complaint today asking to be discharged home for emergency family reasons ~ Discharge Summary Assessment Headaches, common Hypertension fair control Peripheral neuropathy Depression history of opioids use disorder History of gastric bypass surgery Admission Diagnosis: Headache Admission Diagnosis Comment: Headaches, common Hypertension fair control Peripheral neuropathy Depression history of opioids use disorder History of gastric bypass surgery Hospital Course DATE OF ADMISSION: December 09, 2024 DATE OF DISCHARGE: December 10 2024 Discharge Diagnosis\Comment: Headaches, common Hypertension fair control Peripheral neuropathy Depression history of opioids use disorder History of gastric bypass surgery Operations\Procedures: Non Consultants: Virtual neurologist Complications: Non Condition on DC: Stable Discharge Summary: This is a 69-year-old female with a history of opioid use disorder, peripheral neuropathy, musculoskeletal disorders, hypertension cataracts presents today complaint of severe headache. Patient states that her headache was 8/10 in severity in the right parietal and frontal regions, nonradiating, associated with blurring of vision and right eye pain that started yesterday night. She also noticed some pulsating sensation in the right frontal area and thinks her vein was pulsating. She denies any nausea, vomiting, fever. She called her PCP who was concerned about the possibility of temporal arteritis and redirected her to go to the ED. she also saw signals analyst few months ago for blurring of vision, who asked her to change her glasses but she has not made the change yet.She had OxyContin and oxycodone opioid use disorder and was currently on treatment for that. She smoked about three packs a day for five years and 1-2 p acks a day for 20 years. Denies any alcohol or other recreational drug use after admission patient was extensively treated evaluated, feels better now, minimal headaches, asking to be discharged home for family emergency reasons, I explained to the patient we did not finish workup and treatment and recommended to continue inpatient treatment, patient refused elected to be discharged for family reasons as in emergency, risk of severe complications and explained, patient understood medication reconciled, follow-up PCP Ophthalmology in the morning, return to emergency department if condition worsens, today on physical exam Vital signs, stable ,afebrile. Pulse Oximetry reflects adequate oxygenation. General: well developed, well nourished. Awake , alert, and oriented x4, resting comfortably in the bed, in no acute distress . Skin: Warm, dry, no pallor, no rash or petechiae. HEENT: Atraumatic, normocephalic, EOMI, anicteric sclera B; pink conjunctiva; PERRLA, normal oropharynx, moist oral and nasal mucosa. Tympanic membrane , nose , throat clear. Neck: Trachea midline. Supple, full range of motion, no JVD, bruit , hepato jugular reflex , lymphadenopathy or masses, or other lesions Cardiac: Regular rhythm, regular rate no murmurs, rubs, or gallops. Normal S1 and S2, no S3 noticed. PMI is normal. Respiratory: Equal breath sounds bilaterally, no tachypnea; lungs clear to auscultation bilaterally, no wheezing ,rub or rales, or crackles. Chest wall is symmetric and without deformity. No signs of trauma. Chest wall is nontender. No signs of respiratory distress. Resonance is normal upon percussion bilaterally. Gastrointestinal: Abdomen symmetric, non-distended, soft, non-tender, normal bowel sounds x4 quadrant, normoactive, no hepatosplenomegaly , no masses , no bruit, no flank pain bilaterally. No voluntary guarding, rebound, or rigidity. No tenderness to percussion. No pulsatile masses. Equal femoral pulses. No Valiente's sign or McBurney point tenderness. Back; no CVA tenderness bilaterally, no deformities. Neck and back are without deformity as well. No tenderness noted on palpation of the spinous processes. Spinous processes are midline. Cervical, thoracic, and lumbar paraspinal muscles are not tender and are without spasm. Musculoskeletal: Extremities, normal range of motion, non-tender, muscle strength 5/5 x 4. Negative Homans signs bilaterally on lower extremity. Distal pulses full symmetrical, no clubbing, cyanosis , edema. Neurological: Speech is clear, alert, and oriented x 4. No motor or sensory deficit, deep tendon reflexes normal, cerebellar intact. Cranial nerves II-XII intact. Psych: Alert and or appropriate, normal affect. Vascular: Good distal pulses, which are equal x4; capillary refill less than 2 seconds. Lymphatic, no lymphadenopathy. *Problems/Diagnosis: (1) Headache Status: Acute Total Time Spent on D/C: > 30 Minutes Date of Service: Dec 10, 2024 Billing Provider: TRISHA VALDES MD Common Visit Codes: 07700-RHQ/OBS DISCH DAY >30min TRISHA VALDES MD Dec 10, 2024 17:10
== END 2024-12-10 11:15 | disposition home or self-care (01) ==
LOC: ER 13:15 → ED HOLD 19:29 → INTOOBSV 19:29 → ORTHO 4S 23:11
PROVIDERS: ADMIT Internal Medicine Critical Care Medicine; ATTEND Family Medicine
DX: R51.9 Headache, unspecified (principal); I10 Essential (primary) hypertension; G62.9 Polyneuropathy, unspecified; F32.A Depression, unspecified; F11.10 Opioid abuse, uncomplicated; R11.0 Nausea; R79.1 Abnormal coagulation profile; R06.89 Other abnormalities of breathing; Z87.891 Personal history of nicotine dependence; Z98.84 Bariatric surgery status; Z79.899 Other long term (current) drug therapy; Z98.890 Other specified postprocedural states
CPT/HCPCS: 36415; 70450; 70553; 80048; 80053; 80061; 81003; 83036; 83735; 83880; 84484; 85025; 85610; 85651; 85730; 86140; 87081; 96361; 96374; 96375; 96376; 99285; G0378; J1885; J2919; J7030; J7512

== ENCOUNTER 2025-04-26 18:17 | Emergency (ER) | payer OTHER ==
[~2025-04-26] VITALS: Ht 165.1 cm; Wt 55.4 kg
[~2025-04-26 18:17] MED LIST changes: +AMLO10TA13 PO; +BUPR1TAB48 SL; +FLUO-331 PO; +GABA-1555 PO; +TIZA-205 PO
--- NOTE | 2025-04-26 19:51 | Physician Documentation ---
History of Present Illness ~ Chief Complaint: Leg Pain Stated Complaint: L LEG PAIN Time Seen by MD: 19:32 Primary Medical Doctor: None HPI This is a 70-year-old female who presents with one day of left leg pain with feeling of swelling extending from her calf into her thigh, patient reports no recent trauma or long-term immobilization, patient reports no shortness of breath or chest pain. Tetanus witin 5 years: Yes Medication Reconciliation Allergies: Coded Allergies: fentanyl (Unverified Allergy, Mild, HIVES, 12/09/24) acetaminophen (Verified Allergy, Unknown, 04/26/25) hydrocodone (Verified Allergy, Unknown, 04/26/25) Scheduled Amlodipine Besylate (Norvasc), 1 TAB PO DAILY Amlodipine Besylate (Amlodipine Besylate), 1 TAB PO DAILY, (Reported) Buprenorphine HCl/Naloxone HCl (Zubsolv 8.6-2.1 mg Tablet Sl), 2 TAB SL DAILY, (Reported) Carbamide Peroxide (Debrox), 5 DROP RIGHT EAR Q12H Fluoxetine HCl (Fluoxetine HCl), 1 CAP PO DAILY, (Reported) Gabapentin (Gabapentin), 1 TAB PO TID, (Reported) Guaifenesin (Mucinex), 1 TAB PO Q12H ONDANSETRON ODT 4mg tablet (Ondansetron Odt), 4 MG PO BID ONDANSETRON ODT 4mg tablet (Ondansetron Odt), 4 MG PO BID Tizanidine Hcl (Zanaflex), 1 TAB PO TID, (Reported) Scheduled PRN Albuterol Sulfate (Ventolin Hfa), 2 PUFFS INH Q4HPRN PRN for wheezing Past Medical History Past Medical History: *CARDIOVASCULAR*, *GI/HEPATOBILIARY* Past Surgical History: gastric bypass Patient History: FH: stroke FATHER MOTHER Alcohol Use: None Drug Use: marijuana Lives with: Family Lives In: Home Review of Systems ROS As stated above in the HPI, otherwise all systems are reviewed and negative. Physical Exam Vital Signs: Temperature: 97.7, Heart Rate: 95, Respiratory Rate: 16, BP: 138/69, Pulse Oximetry: 96, Weight: 55.400 Oxygen Flow Rate: 0 Physical Exam VITALS: Reviewed and as above. GENERAL: Alert, nontoxic appearing, no apparent distress. RESPIRATORY: No increased work of breathing, no respiratory distress, speaking in full clear sentences, clear lung sounds in all servin CV: Regular rate and rhythm no murmur, no pitting edema, pedal pulse of left foot intact MUSCULOSKELETAL:Left lower extremity not significantly more swollen than right lower extremity, left posterior calf tender to palpation extending into posterior distal thigh SKIN: Bilateral lower extremities no ecchymosis or erythema NEURO: Sensation to left foot intact Progress Results/Orders Results/Orders Orders - ELIUD NESS Venous (04/26/25 19:44) Completed Orders - ELIUD NESS Venous (04/26/25 19:44) Vital Signs 04/26/25 04/26/25 18:24 20:54 Temp 97.7 98.6 Pulse 95 90 Resp 16 18 B/P (MAP) 138/69 136/68 Pulse Ox 96 99 O2 Flow Rate 0 EKG/XRAY/CT/US/VASC/MRI Vascular : Impression Exam Name: VENOUS Technologist: Left lower extremity venous duplex Clinical History: LLE pain/swelling Comparison: None Technique: Duplex Doppler evaluation of the deep venous system of the left lower extremity from the common femoral vein to the popliteal vein including color Doppler and spectral/pulsed waveform analysis was performed. Findings: The common femoral vein demonstrates appropriate compressibility and waveform variability. There is compressibility/patency of the great saphenous vein at the proximal thigh. The femoral vein demonstrates appropriate compressibility and waveform variability. The deep femoral vein demonstrates appropriate compressibility and waveform variability. The popliteal vein demonstrates appropriate compressibility and waveform variability. There is normal compressibility at the tibioperoneal trunk, and the contralat eral common femoral vein. Impression: 1. No left femoropopliteal venous thrombosis. Dictated by:KOREY AVINA MD Dictation date and time:04/26/252034 Electronically Signed by: KOREY AVINA MD Date and Time: 04/26/252034 Transcribed: RUDDY Medical Decision Making Additional information obtaine: N/A Findings This 70-year-old female presented with one day of left calf pain and feeling of swelling extending into her distal thigh, it was reassuring patient reported no chest pain or shortness breath, due to concern for DVT a vascular ultrasound was obtained which did not demonstrate evidence of DVT. Remainder of patient's physical exam was benign with no focal findings on physical exam to suggest acute injury or infection, patient was given reassurance against DVT and with shared decision-making patient will follow up with primary care provider about calf pain. Patient provided home care instructions, return to care precautions, and follow up instructions this is a verbalized understanding of. General Diff Dx:Considerations: Include: Abrasion, Contusion, Hematoma, Neur ovascular injury, Sprain, Other (Cellulitis, compartment syndrome,) Knee Diff Dx:Considerations: Include: Abrasion, Arthritis, Contusion, Fracture- femur, Fracture-fibula, Fracture-patella, Fracture-tibia, Laceration, Meniscus injury, Neurovascular injury, Septic, Sprain-MCL, Sprain-LCL, Sprain-ACL Ankle Diff Dx:Considerations: Unlikely: Abrasion, Arthritis, Contusion, DJD, Fracture-metatarsal, Fracture-fibula, Fracture-tarsal, Fracture-tibia, Gout, Hematoma, Laceration, Malunion, Neurovascular injury, Nonunion, Open fracture, Osteomyelitis, Rheumatoid arthritis, Sprain, Septic, Ulcer, Other Foot Diff Dx:Considerations: Unlikely: Abrasion, Arthritis, Cellulitis, Contusion, Dislocation, DJD, Fracture-metatarsal, Fracture-phalynx, Fracture- tarsal, Gout, Hematoma, Ingrown toenail, Laceration, Malunion, Neurovascular injury, Open fracture, Paronychia, Puncture, Rheumatoid, Sprain, Septic, Subungual hematoma, Ulcer, Other Toe Diff Dx:Considerations: Unlikely: Abrasion, Cellulitis, Contusion, Dislocation, Felon, Fracture, Hematoma, Laceration, Neurovascular injury, Open fracture, Paronychia, Subungual hematoma, Other Departure Time of Disposition: 20:35 Disposition: 01 HOME / SELF CARE / HOMELESS Impression: Primary Impression: Lower extremity pain, diffuse Qualified Codes: M79.605 - Pain in left leg Condition: Improved Discharge Instructions: RICE Therapy for Routine Care of Injuries, [id number] Additional Instructions: There was no clear cause for your leg pain, the ultrasound did not show any evidence of a blood clot this is reassuring. Please see the attached home care instructions for rest, ice, compression, and elevation to treat your nonspecific leg pain. Please follow up with your primary care provider in the next few days. Please return to the emergency department for any new or worsening concerning symptoms. Referrals: NO PRIMARY CARE PROVIDER (PCP) Education Educated: Patient Educated regarding: diagnosis, treatment, prognosis, need for follow up Signature Scribe Signature: No scribe Attestation: The note accurately reflects work and decisions made by me.MICHAEL Reis 04/27/25 01:18 ELIUD NESS Apr 26, 2025 19:51
--- NOTE | 2025-04-26 20:38 | VASCULAR REPORT ---
Left lower extremity venous duplex Clinical History: LLE pain/swelling Comparison: None Technique: Duplex Doppler evaluation of the deep venous system of the left lower extremity from the common femoral vein to the popliteal vein including color Doppler and spectral/pulsed waveform analysis was performed. Findings: The common femoral vein demonstrates appropriate compressibility and waveform variability. There is compressibility/patency of the great saphenous vein at the proximal thigh. The femoral vein demonstrates appropriate compressibility and waveform variability. The deep femoral vein demonstrates appropriate compressibility and waveform variability. The popliteal vein demonstrates appropriate compressibility and waveform variability. There is normal compressibility at the tibioperoneal trunk, and the contralateral common femoral vein. Impression: 1. No left femoropopliteal venous thrombosis.
[2025-04-26 20:54] VITALS: BP 136/68; PULSE 90; RESP 18; TEMP 98.6; O2SAT 99
== END 2025-04-26 20:55 | disposition home or self-care (01) ==
LOC: ER 18:18
DX: M79.605 Pain in left leg (principal); Z88.5 Allergy status to narcotic agent; Z88.8 Allergy status to other drugs, medicaments and biological substances; Z79.899 Other long term (current) drug therapy
CPT/HCPCS: 93971; 99284; A6449